=== PATIENT | male | born 1960 | race Caucasian/White ===

== ENCOUNTER 2017-01-11 08:21 | Day surgery (SDC) | payer SELFPAY ==
[2017-01-11] MEDS ORDERED: LACTATED RINGERS 1,000 ML ONE (08:26)
[2017-01-11] MEDS ORDERED: IV START KIT ONE (08:26)
[2017-01-11] MEDS ORDERED: PROPOFOL 20 ML IV ONE (09:36)
[2017-01-11] MEDS ORDERED: LACTATED RINGERS 1,000 ML IV SCH (10:15)
== END 2017-01-11 10:40 | disposition home or self-care (01) ==
LOC: SDC 08:21
PROVIDERS: ATTEND Surgery
PROC: 0DJD8ZZ Inspection of Lower Intestinal Tract, Via Natural or Artificial Opening Endoscopic (ICD-10-PCS; principal; 2017-01-11)
DX: Z12.11 Encounter for screening for malignant neoplasm of colon (principal); K57.30 Diverticulosis of large intestine without perforation or abscess without bleeding; Z86.010 Personal history of colon polyps; F41.9 Anxiety disorder, unspecified; R59.1 Generalized enlarged lymph nodes
CPT/HCPCS: 45378; J7120